=== PATIENT | female | born 1970 | race African-American/Black ===

== ENCOUNTER 2017-02-22 14:55 | Emergency (ER) | payer OTHER ==
[~2017-02-22] VITALS: Ht 188 cm; Wt 95.3 kg
[2017-02-22 15:16] VITALS: BP 123/82
[2017-02-22] MEDS ORDERED: methylPREDNISolone SOD SUCC 125 MG/2 ML VL IM ONE (15:30)
[2017-02-22] MEDS ORDERED: diphenhdrAMINE HCL 50 MG/1 ML VL IM ONE (15:30)
[2017-02-22] MEDS ORDERED: SILVER SULFADIAZINE 1 % TOPICAL CREAM 50GM TOP ONE (15:30)
== END 2017-02-22 16:00 | disposition home or self-care (01) ==
LOC: ER 15:06
DX: T20.13XA Burn of first degree of chin, initial encounter (principal); T78.40XA Allergy, unspecified, initial encounter; X12.XXXA Contact with other hot fluids, initial encounter; Y93.9 Activity, unspecified; Y99.8 Other external cause status; Y92.89 Other specified places as the place of occurrence of the external cause
CPT/HCPCS: 16000; 96372; 99284; J1200; J2930

== ENCOUNTER 2017-03-13 09:17 | Emergency (ER) | payer OTHER ==
[~2017-03-13] VITALS: Ht 188 cm; Wt 95.3 kg
[2017-03-13 09:24] VITALS: BP 128/88
[2017-03-13] MEDS ORDERED: diphenhdrAMINE HCL 50 MG/1 ML VL IV ONE (10:15)
[2017-03-13] MEDS ORDERED: methylPREDNISolone SOD SUCC 40 MG/ML VL IV ONE (10:15)
[2017-03-13] MEDS ORDERED: methylPREDNISolone SOD SUCC 125 MG/2 ML VL ONE (10:18)
[2017-03-13] MEDS ORDERED: diphenhdrAMINE HCL 50 MG/1 ML VL IM ONE (10:30)
[2017-03-13] MEDS ORDERED: methylPREDNISolone SOD SUCC 125 MG/2 ML VL IM ONE (10:30)
== END 2017-03-13 10:53 | disposition home or self-care (01) ==
LOC: EDSEX 09:17 → ER 09:17
DX: L50.9 Urticaria, unspecified (principal); Z91.041 Radiographic dye allergy status
CPT/HCPCS: 96372; 99284; J1200; J2930